=== PATIENT | male | born 1995 | race Caucasian/White ===

== ENCOUNTER 2018-04-03 15:21 | Emergency (ER) | payer OTHER ==
[2018-04-03 15:25] VITALS: BP 133/67
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
[2018-04-03] MEDS ORDERED: HYDROCODONE/ACETAMINOPHEN 5-325 MG TABLET PO ONE (16:09)
[2018-04-03 16:10] LABS: ABSOLUTE EOSINOPHILS # (AUTO) 0.1 10^3/uL (0.0-0.6); ABSOLUTE MONOCYTES (AUTO) 0.9 10^3/uL (0.1-1.4); ABSOLUTE NEUT (AUTO) 7.4 10^3/uL (1.7-8.2); BASOPHILS % (AUTO) 0.4 % (0-2); EOSINOPHILS % (AUTO) 0.7 % (0-6); HEMATOCRIT 49.2 % (37.9-51.0); HEMOGLOBIN 17.3 g/dL (13.5-17.0); LYMPHOCYTES % (AUTO) 10.5 % (13-45); MEAN CORPUSCULAR HEMOGLOBIN 30.7 pg (27.0-33.4); MEAN CORPUSCULAR HGB CONC 35.2 g/dL (32.0-36.0); MEAN CORPUSCULAR VOLUME 87 fl (80-97); MONOCYTES % (AUTO) 9.8 % (3-13); PLATELET COUNT 299 10^3/uL (150-450); RED BLOOD COUNT 5.64 10^6/uL (4.35-5.55); RED CELL DISTRIBUTION WIDTH 13.1 % (11.5-14.0); SEGMENTED NEUTROPHILS % (AUTO) 78.6 % (42-78); TOTAL CELLS COUNTED % (AUTO) 100 %; WHITE BLOOD COUNT 9.4 10^3/uL (4.0-10.5)
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
[2018-04-03 16:17] LABS: INTERNATIONAL RATION (INR) 0.97; PROTHROMBIN TIME 13.3 SEC (11.4-15.4)
[2018-04-03 16:18] LABS: PARTIAL THROMBOPLASTIN TIME 26.2 SEC (23.5-35.8)
[2018-04-03 16:27] LABS: ALANINE AMINOTRANSFERASE 34 U/L (21-72); ALBUMIN 5.2 g/dL (3.5-5.0); ALKALINE PHOSPHATASE 105 U/L (38-126); ANION GAP 15 (5-19); ASPARTATE AMINO TRANSFERASE 43 U/L (17-59); BILIRUBIN,DIRECT 0.3 mg/dL (0.0-0.4); BILIRUBIN,TOTAL 0.9 mg/dL (0.2-1.3); BLOOD UREA NITROGEN 11 mg/dL (7-20); CALCIUM 10.3 mg/dL (8.4-10.2); CARBON DIOXIDE 26 mmol/L (22-30); CHLORIDE 103 mmol/L (98-107); GLUCOSE 88 mg/dL (75-110); POTASSIUM 4.5 mmol/L (3.6-5.0); SODIUM 144.2 mmol/L (137-145)
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
== END 2018-04-03 17:19 | disposition home or self-care (01) ==
LOC: ER 15:21
DX: S02.2XXA Fracture of nasal bones, initial encounter for closed fracture (principal); S60.221A Contusion of right hand, initial encounter; S01.512A Laceration without foreign body of oral cavity, initial encounter; Y04.2XXA Assault by strike against or bumped into by another person, initial encounter; Y92.59 Other trade areas as the place of occurrence of the external cause; R51 Headache; M79.641 Pain in right hand; R42 Dizziness and giddiness; F17.210 Nicotine dependence, cigarettes, uncomplicated
CPT/HCPCS: 36415; 70450; 70486; 80053; 85025; 85610; 85730; 99284